=== PATIENT | female | born 1990 | race American Indian/Alaskan Native ===

== ENCOUNTER 2020-01-21 11:28 | Outpatient (CLI) | payer OTHER ==
[2020-01-21 13:10] VITALS: BP 91/52
[2020-01-21] MEDS ORDERED: LACTATED RINGERS 1,000 ML IV ONE (13:11)
[2020-01-21 13:23] LABS: Bacteria,Urine 2+ /HPF (Negative); Bilirubin,Urine NEG (Negative); Blood,Urine SM (Negative); Color,Urine Yellow (Yellow); Mucus,Urine 2+ /HPF; Urobilinogen,Urine < 2.0 mg/dL (<2.0)
== END 2020-01-21 13:52 | disposition home or self-care (01) ==
LOC: TRG 11:28 → APU 11:28 → TRG 13:52
PROVIDERS: ATTEND Obstetrics & Gynecology
DX: O26.892 Other specified pregnancy related conditions, second trimester (principal); R10.31 Right lower quadrant pain; Z3A.24 24 weeks gestation of pregnancy
CPT/HCPCS: 59025; 81001; 87086; 96360; 96361; J7120